=== PATIENT | female | born 1995 | race Two or more races ===

== ENCOUNTER 2019-10-21 19:13 | Emergency (ER) | payer MEDICAID ==
[~2019-10-21] VITALS: Ht 127 cm; Wt 48.5 kg
[2019-10-21 19:18] VITALS: BP 94/70
--- NOTE | 2019-10-21 19:34 | NUR ---
PT CAME INTO THE ED C/O L SIDED FLANK PAIN SINCE 5PM. NO OTHER MEDICAL COMPLAINTS AT THIS TIME. AAOX4, VSS, NO ACUTE DISTRESS NOTED. AWAITING FOR MD SALCIDO.
--- NOTE | 2019-10-21 19:46 | NUR ---
Patient discharged to home in stable condition. Written and verbal after care instructions given. Patient verbalizes understanding of instruction.
== END 2019-10-21 19:47 | disposition home or self-care (01) ==
LOC: ER 19:17
DX: R10.32 Left lower quadrant pain (principal); R10.12 Left upper quadrant pain